=== PATIENT | male | born 1990 | race Caucasian/White ===

== ENCOUNTER → 2016-11-15 | Outpatient (CLI) | payer MEDICAID ==
[~2016-11-15] MED LIST: ABILIFY10 MG PO; ACYCLOVIR 400M400 MG PO; AMOXICILLIN 50500 MG PO; AUGMENTIN 500 M1 TAB PO; CETIRIZINE HCL10 MG PO; CLEOCIN GENERI150 MG PO; LORATADINE 10MG10 M1 OR; LORTAB 5/3251 TAB PO; MOTRIN600 M1 PO; NOMEDS XX; PHENERGAN 25MG.25 M1 PO; PHENERGAN VC +120 ML PO; TRAZODONE100 MG PO; VOLTAREN75 MG PO
[2016-11-15 09:52] LABS: LYMPH # 1.1 K/mm3 (0.7-4.5); LYMPH % 25.1 % (10-50)
[2016-11-15 10:12] LABS: HEMOGLOBIN 14.2 g/dL (14.1-18.0)
[2016-11-15 11:09] LABS: BUN 12 mg/dL (7-18)
[2016-11-15 11:13] LABS: GFR (ESTIMATED) 103 ML/MIN (>60)
== END ==
LOC: LAB 09:12
PROVIDERS: Nurse Practitioner Family
DX: R53.83 Other fatigue (principal)